=== PATIENT | male | born 1940 | race Caucasian/White ===

== ENCOUNTER 2017-12-20 13:51 | Emergency (ER) | payer OTHER ==
--- NOTE | 2017-12-20 14:32 | EDPHY ---
H & P Smoking Status: Never smoked Time Seen by Provider: 12/20/17 14:21 HPI/ROS: CHIEF COMPLAINT: Shortness of breath HISTORY OF PRESENT ILLNESS: Patient had history of atrial fibrillation on warfarin. Had a stroke with residual left arm weakness. At symptoms about 2 weeks ago shortness of breath which resolved spontaneously. Had 4 weeks ago of cough and fever and chills illness which he thought was influenza but was not tested. Today around noon he was sitting watching sports on television when he got suddenly short of breath and his noticed that he was painting. He still feels a little bit short of breath the symptoms have improved but having gotten all better. Not associated with cough or hemoptysis or chest pain or fever. Symptoms were severe then in mild to moderate now. 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 PAST MEDICAL HISTORY: Atrial fibrillation on warfarin, residual left upper extremity weakness after stroke, left hip fracture Social history: Here with his General Appearance: Alert and conversant, cooperative. Eyes: No scleral icterus. ENT, Mouth: Normal mucous membranes. Respiratory: Bibasilar crackles and still appears clinically short of breath with 4 word sentences. Cardiovascular: Irregularly irregular. Gastrointestinal: Abdomen is soft and non tender. Neurological: Alert, follows commands, face symmetric. Good motor function and right arm and both legs but has left upper extremity paralysis from previous stroke which is not new Skin: Warm and dry, no rashes. Musculoskeletal: No peripheral edema. No calf tenderness. Psychiatric: Not agitated. Emergency Department course/MDM: Plan for CBC chemistry as well as protime and BNP. Troponin and EKG. I would consider pulmonary embolism unlikely if his INR is therapeutic. Signed out to Sakina at 1520 with lab and CXR pending. (Scooby Nolasco) Constitutional: Initial Vital Signs Temperature (C) 36.9 C 12/20/17 14:07 Heart Rate 71 12/20/17 14:07 Respiratory Rate 16 12/20/17 14:07 Blood Pressure 149/89 H 12/20/17 14:07 O2 Sat (%) 94 12/20/17 14:07 O2 Delivery Mode Room Air Allergies/Adverse Reactions: nitrofurantoin Allergy (Verified 12/20/17 14:05) Home Medications: Medication Instructions Recorded Fish Oil 1,000 mg Softgel 12/20/17 Gabapentin 12/20/17 Levetiracetam 12/20/17 Levothyroxine 12/20/17 Metrogel 12/20/17 Multivitamins 12/20/17 Potassium Chloride 12/20/17 Rosuvastatin Calcium 12/20/17 Tamsulosin HCl 12/20/17 Verapamil 12/20/17 Warfarin Sodium 12/20/17 Medical Decision Making - Diagnostics EKG Interpretation: 12-lead EKG interpreted by me; official reading is in trace master. My interpretation is atrial fibrillation rate 68 with borderline left axis no acute ischemic changes. (Scooby Nolasco) Imaging Results: Imaging Impressions Chest X-Ray 12/20/17 14:29 Impression: Mild cardiac silhouette enlargement, with no evidence of congestive heart failure or focal infiltrate. Abdomen CT 12/20/17 16:19 Impression: 1. Cholelithiasis, without bile duct dilatation. 2. Constipation, with no mechanical bowel obstruction. 3. Left nephrolithiasis with moderate obstructive uropathy secondary to lumbar ureterolithiasis, the largest stone measuring 8 mm. There are also bilateral renal cortical cysts, with renal cortical atrophy more pronounced on the left than the right. 4. Cardiomegaly with trace pericardial effusion, and coronary artery atherosclerotic calcifications. 5. Status post left hip arthroplasty. Findings were discussed with Yeison Presley MD at 17:28, on 12/20/2017. ED Course/Re-evaluation: This patient was turned over to me at change of shift. After thorough workup including abdominal and pelvis CT scan there are no acute findings. This patient does have a chronic left kidney obstruction from nephrolithiasis that he knows about. The acute pain shortness of breath turning white and turning blue lips that his described that happened earlier today has not happened. I offered this patient admission. In fact, the hospitalist was meeting with the patient to do the admission but the patient does not want to come in the hospital. They would like to go home despite my urging that I do not have an explanation for this hour long episode of this event. (Yeison Presley) Differential Diagnosis: Differential diagnosis considered for shortness of breath including but not limited to pulmonary infectious process, COPD, asthma, pulmonary embolus and congestive heart failure. (Scooby Nolasco) Other Provider: 1615: Chest x-ray shows possible air-fluid levels in the large bowel and bowel dilation that could indicate bowel obstruction. Abdominal CT ordered. Evaluated patient and discussed findings and recommendation for CT. He denies abdominal pain, but says he has not passed gas or had a bowel movement for 2 days. His shortness of breath has improved and he is resting comfortably at this time. He consents to scan. CT shows left-sided kidney stone, chronic vs acute ureteropathy. Patient will require admission for this and his transient episode of dyspnea. Spoke with hospitalist service. Dr. Judge accepts admission. (Yeison Presley) - Data Points Laboratory Results: Laboratory Results 12/20/17 14:45 12/20/17 14:45 12/20/17 12/20/17 12/20/17 15:40 14:45 14:45 WBC RBC Hgb Hct MCV MCH MCHC RDW Plt Count MPV Neut % (Auto) Lymph % (Auto) [place] % (Auto) Eos % (Auto) Baso % (Auto) Nucleat RBC Rel Count Absolute Neuts (auto) Absolute Lymphs (auto) Absolute Monos (auto) Absolute Eos (auto) Absolute Basos (auto) Absolute Nucleated RBC Immature Gran % Immature Gran # PT 34.2 SEC H SEC (12.0-15.0) INR 3.41 H (0.83-1.16) Sodium 141 mEq/L mEq/L (135-145) Potassium 4.2 mEq/L mEq/L (3.5-5.2) Chloride 104 mEq/L mEq/L (97-110) Carbon Dioxide 29 mEq/l mEq/l (22-31) Anion Gap 8 mEq/L mEq/L (8-16) BUN 18 mg/dL mg/dL (7-23) Creatinine 1.0 mg/dL mg/dL (0.7-1.3) Estimated GFR > 60 Glucose 98 mg/dL mg/dL (70-100) Calcium 9.5 mg/dL mg/dL (8.5-10.4) Troponin I < 0.012 ng/mL ng/mL (0.000-0.034) NT-Pro-B Natriuret Pep 507 pg/mL H pg/mL (0-450) Nasal Influenza A PCR NEGATIVE FOR FLU A (NEGATIVE) Nasal Influenza B PCR NEGATIVE FOR FLU B (NEGATIVE) 12/20/17 14:45 WBC 5.41 10^3/uL 10^3/uL (3.80-9.50) RBC 5.17 10^6/uL 10^6/uL (4.40-6.38) Hgb 15.5 g/dL g/dL (13.7-17.5) Hct 46.2 % % (40.0-51.0) MCV 89.4 fL fL (81.5-99.8) MCH 30.0 pg pg (27.9-34.1) MCHC 33.5 g/dL g/dL (32.4-36.7) RDW 14.0 % % (11.5-15.2) Plt Count 190 10^3/uL 10^3/uL (150-400) MPV 10.8 fL fL (8.7-11.7) Neut % (Auto) 49.5 % % (39.3-74.2) Lymph % (Auto) 34.2 % % (15.0-45.0) [place] % (Auto) 9.4 % % (4.5-13.0) Eos % (Auto) 6.1 % % (0.6-7.6) Baso % (Auto) 0.6 % % (0.3-1.7) Nucleat RBC Rel Count 0.0 % % (0.0-0.2) Absolute Neuts (auto) 2.68 10^3/uL 10^3/uL (1.70-6.50) Absolute Lymphs (auto) 1.85 10^3/uL 10^3/uL (1.00-3.00) Absolute Monos (auto) 0.51 10^3/uL 10^3/uL (0.30-0.80) Absolute Eos (auto) 0.33 10^3/uL 10^3/uL (0.03-0.40) Absolute Basos (auto) 0.03 10^3/uL 10^3/uL (0.02-0.10) Absolute Nucleated RBC 0.00 10^3/uL 10^3/uL (0-0.01) Immature Gran % 0.2 % % (0.0-1.1) Immature Gran # 0.01 10^3/uL 10^3/uL (0.00-0.10) PT INR Sodium Potassium Chloride Carbon Dioxide Anion Gap BUN Creatinine Estimated GFR Glucose Calcium Troponin I NT-Pro-B Natriuret Pep Nasal Influenza A PCR Nasal Influenza B PCR Departure - Departure Disposition: Home, Routine, Self-Care Clinical Impression: Left nephrolithiasis, ureteropathy Dyspnea Qualifiers: Dyspnea type: shortness of breath Qualified Code(s): R06.02 - Shortness of breath Condition: Good Instructions: Shortness of Breath (ED) Additional Instructions: Return immediately if you have another event Referrals: IKER GONZALES [Primary Care Provider] - As per Instructions
--- NOTE | 2017-12-20 14:58 | CPEKG ---
Heart Rate: 68 RR Interval: 882 QRSD Interval: 90 QT Interval: 428 QTC Interval: 456 QRS [place]: -20 T Wave [place]: 9 EKG Severity - ABNORMAL ECG - EKG Impression: ATRIAL FIBRILLATION, V-RATE 55-80 EKG Impression: BORDERLINE LEFT AXIS DEVIATION Electronically Signed By: Scooby Nolasco 20-Dec-2017 15:16:13
[2017-12-20 15:13] LABS: PLATELET COUNT 190 10^3/uL (150-400)
[2017-12-20 15:27] LABS: INR 3.41 (0.83-1.16); PROTIME(PATIENT) 34.2 SEC (12.0-15.0)
[2017-12-20] MEDS ORDERED: IOPAMIDOL (ISOVUE-300) 100 ML BTL ONE (16:20)
[2017-12-20 18:02] VITALS: BP 174/78; PULSE 74; RESP 16; TEMP 98.1; O2SAT 98
--- NOTE | 2017-12-20 18:04 | PDGENHP ---
History and Physical History and Physical: Obs Admission was cancelled - bc patient did not want to stay for Obs stay at hospital.
== END 2017-12-20 18:25 | disposition home or self-care (01) ==
LOC: UNDOADMOB 17:36
DX: R06.02 Shortness of breath (principal); N20.0 Calculus of kidney; Z79.01 Long term (current) use of anticoagulants
CPT/HCPCS: 71046; 74177; 93005; 99285; Q9967